=== PATIENT | female | born 1935 | race Caucasian/White ===

== ENCOUNTER 2020-07-28 08:00 | Outpatient (CLI) | payer MEDICARE, OTHER | END 2020-07-28 23:59 | disposition home or self-care (01) | LOC: LAB.R 08:00 | PROVIDERS: ATTEND Physician Assistant Medical | DX: R30.0 Dysuria (principal) | CPT/HCPCS: 87086; 87181 ==

== ENCOUNTER 2020-10-01 09:15 | Outpatient (CLI) | payer MEDICARE, OTHER ==
[2020-10-01 15:13] LABS: BASOPHILS % (AUTO) 0.8 %; EOSINOPHILS # (AUTO) 0.2 10^3/uL (0.0-0.7); EOSINOPHILS % (AUTO) 4.8 %; HGB - HEMOGLOBIN 13.2 g/dL (12.0-16.0); LYMPHOCYTES # (AUTO) 1.1 10^3/uL (1.5-3.5); LYMPHOCYTES % (AUTO) 22.2 %; MEAN CORPUSCULAR HEMOGLOBIN 29.9 pg (27.0-31.0); MEAN CORPUSCULAR HGB CONC 31.4 g/dL (32.0-36.0); MEAN PLATELET VOLUME 10.5 fL (7.9-10.8); MONOCYTES # (AUTO) 0.5 10^3/uL (0.0-1.0); MONOCYTES % (AUTO) 11.1 %; NEUTROPHILS # (AUTO) 2.9 10^3/uL (1.5-6.6); NEUTROPHILS % (AUTO) 60.5 %; PLT - PLATELET COUNT 199 10^3/uL (130-450); RED BLOOD COUNT 4.42 10^6/uL (4.20-5.40); RED CELL DISTRIBUTION WIDTH 13.2 % (12.0-15.0); WHITE BLOOD COUNT 4.8 x10^3/uL (4.8-10.8)
[2020-10-01 15:25] LABS: ALBUMIN 4.5 g/dL (3.2-5.5); ALBUMIN/GLOBULIN RATIO 1.5 (1.0-2.2); ALKALINE PHOSPHATASE 45 IU/L (42-121); ALT ALANINE AMINOTRANSFERASE 16 IU/L (10-60); AST ASPARTATE AMINOTRANSFERASE 16 IU/L (10-42); BILIRUBIN,TOTAL 1.4 mg/dL (0.2-1.0); BUN - BLOOD UREA NITROGEN 22 mg/dL (6-20); CALCIUM 9.7 mg/dL (8.5-10.3); CARBON DIOXIDE - CO2 29 mmol/L (21-32); CHLORIDE 106 mmol/L (101-111); CHOL/HDL RATIO 2.2 (<4.4); CHOLESTEROL 170 mg/dL; CREATININE 0.6 mg/dL (0.4-1.0); GFR - MDRD 95 (>89); GLUCOSE 84 mg/dL (70-100); HDL CHOLESTEROL 76 mg/dL; LDL CHOLESTEROL,CALCULATED 75 mg/dL; POTASSIUM 4.3 mmol/L (3.5-5.0); SODIUM 143 mmol/L (135-145); TOTAL PROTEIN 7.5 g/dL (6.7-8.2); TRIGLYCERIDES 95 mg/dL; VLDL CHOLESTEROL 19 mg/dL
== END 2020-10-01 09:16 | disposition home or self-care (01) ==
LOC: LAB.S 09:15
PROVIDERS: ATTEND Internal Medicine
DX: E78.5 Hyperlipidemia, unspecified (principal); R03.0 Elevated blood-pressure reading, without diagnosis of hypertension
CPT/HCPCS: 36415; 80053; 80061; 83721; 85025

== ENCOUNTER 2020-10-23 16:57 | Outpatient (CLI) | payer MEDICARE, OTHER ==
--- NOTE | 2020-10-24 09:20 | XRAY Report ---
PROCEDURE: Foot 3 View LT INDICATIONS: CALCANEAL SPUR, LEFT FOOT TECHNIQUE: 3 views of the foot were acquired. COMPARISON: None. FINDINGS: Bones: No acute fractures or dislocations. No suspicious bony lesions. Mild hallux valgus. Mild to moderate degenerative changes are seen in the first metatarsophalangeal joint. Scattered degenerativ e changes are seen in the interphalangeal joints of toes. A small posterior calcaneal enthesophyte is seen. Soft tissues: No suspicious soft tissue calcification. IMPRESSION: 1. No acute osseous abnormality. 2. Small posterior calcaneal enthesophyte. 3. 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 Reviewed by: Papo Cohn MD on 10/24/2020 9:18 AM PDT Approved by: Papo Cohn MD on 10/24/2020 9:18 AM PDT Station ID: [id number]
== END 2020-10-23 23:59 | disposition home or self-care (01) ==
LOC: DI.S 16:57
PROVIDERS: ATTEND Emergency Medicine
DX: M77.32 Calcaneal spur, left foot (principal); M20.12 Hallux valgus (acquired), left foot; M19.072 Primary osteoarthritis, left ankle and foot

== ENCOUNTER 2020-11-08 10:00 | Outpatient (CLI) | payer MEDICARE, OTHER ==
[2020-11-08 15:04] LABS: BILIRUBIN,URINE NEGATIVE (NEGATIVE); GLUCOSE, URINE (UA) NEGATIVE (NEGATIVE); KETONES,URINE (UA) NEGATIVE (NEGATIVE); LEUKOCYTE ESTERASE, URINE MODERATE (NEGATIVE); NITRITE,URINE POSITIVE (NEGATIVE); OCCULT BLOOD,URINE TRACE-LYSE (NEGATIVE); PROTEIN,URINE NEGATIVE (NEGATIVE); UROBILINOGEN,URINE 0.2 (NORMAL) E.U./dL (NORMAL)
[2020-11-08 15:07] LABS: CLARITY,URINE SL. CLOUDY (CLEAR)
[2020-11-08 15:10] LABS: BACTERIA,URINE Many /HPF (None Seen); RBC,URINE 0-5 /HPF (0-5); SQUAMOUS EPITHELIAL CELL,UR FEW Squamous (<= Few); WBC,URINE >25 /HPF (0-5)
== END 2020-11-08 23:59 | disposition home or self-care (01) ==
LOC: LAB.S 10:00
PROVIDERS: ATTEND Emergency Medicine
DX: R30.0 Dysuria (principal)
CPT/HCPCS: 81001; 87086; 87181

== ENCOUNTER 2020-12-30 11:49 | Outpatient (CLI) | payer MEDICARE, OTHER ==
--- NOTE | 2020-12-30 17:31 | XRAY Report ---
PROCEDURE: Lumbar Spine 2 View INDICATIONS: BACK PAIN TECHNIQUE: 3 views of the lumbar spine were acquired. COMPARISON: None. FINDINGS: Bones: 5 [id number]-oyh-yjuyogf vertebrae are present. No vertebral body compression fractures. No suspic ious bony lesions. Mild levoconvex scoliotic curvature is seen. There is moderate disc space narrowing seen at L2-L3 an d L3-L4. Mild disc space narrowing is seen at L4-L5 and at L5-S1. Facet arthropathy is seen, which i s most prominent inferiorly. Degenerative changes are also seen of the sacroiliac joints, with sclerosis. Soft tissues: Overlying bowel gas pattern is normal. No suspicious soft tissue calcifications. Ath erosclerotic calcification is seen. IMPRESSION: Levoconvex scoliotic curvature and multiple levels of lumbar spine degenerative change a re seen by plain film. Reviewed by: Ryan Almanzar MD on 12/30/2020 4:30 PM MINO Approved by: Ryan Almanzar MD on 12/30/2020 4:30 PM MINO Station ID: [id number]
== END 2020-12-30 11:50 | disposition home or self-care (01) ==
LOC: DI.S 11:49
PROVIDERS: ATTEND Internal Medicine
DX: M47.816 Spondylosis without myelopathy or radiculopathy, lumbar region (principal); M47.817 Spondylosis without myelopathy or radiculopathy, lumbosacral region; M41.9 Scoliosis, unspecified

== ENCOUNTER 2021-01-19 13:10 | Outpatient (CLI) | payer MEDICARE, OTHER ==
[2021-01-19 20:45] LABS: BILIRUBIN,URINE NEGATIVE (NEGATIVE); GLUCOSE, URINE (UA) NEGATIVE (NEGATIVE); KETONES,URINE (UA) NEGATIVE (NEGATIVE); LEUKOCYTE ESTERASE, URINE SMALL (NEGATIVE); NITRITE,URINE POSITIVE (NEGATIVE); OCCULT BLOOD,URINE TRACE-INTA (NEGATIVE); PH,URINE 6.5 PH (5.0-7.5); PROTEIN,URINE NEGATIVE (NEGATIVE); UROBILINOGEN,URINE 0.2 (NORMAL) E.U./dL (NORMAL)
[2021-01-19 20:48] LABS: CLARITY,URINE CLOUDY (CLEAR)
[2021-01-19 20:56] LABS: BACTERIA,URINE Many /HPF (None Seen); RBC,URINE 0-5 /HPF (0-5); SQUAMOUS EPITHELIAL CELL,UR RARE Squamous (<= Few); WBC,URINE >25 /HPF (0-5)
== END 2021-01-19 23:59 | disposition home or self-care (01) ==
LOC: LAB.S 13:10
PROVIDERS: ATTEND Emergency Medicine
DX: N39.0 Urinary tract infection, site not specified (principal)
CPT/HCPCS: 81001; 87086; 87181

== ENCOUNTER 2021-02-13 08:00 | Outpatient (CLI) | payer MEDICARE, OTHER ==
[2021-02-13 20:45] LABS: BILIRUBIN,URINE NEGATIVE (NEGATIVE); GLUCOSE, URINE (UA) NEGATIVE (NEGATIVE); KETONES,URINE (UA) NEGATIVE (NEGATIVE); LEUKOCYTE ESTERASE, URINE MODERATE (NEGATIVE); NITRITE,URINE POSITIVE (NEGATIVE); OCCULT BLOOD,URINE NEGATIVE (NEGATIVE); PROTEIN,URINE TRACE mg/dL (NEGATIVE); UROBILINOGEN,URINE 1 (NORMAL) E.U./dL (NORMAL)
[2021-02-13 21:03] LABS: CLARITY,URINE CLOUDY (CLEAR); WBC,URINE >25 /HPF (0-5)
[2021-02-13 21:04] LABS: BACTERIA,URINE Many /HPF (None Seen); RBC,URINE 0-5 /HPF (0-5); SQUAMOUS EPITHELIAL CELL,UR NONE SEEN (<= Few)
== END 2021-02-13 23:59 | disposition home or self-care (01) ==
LOC: LAB.S 08:00
PROVIDERS: ATTEND Physician Assistant Medical
DX: R30.0 Dysuria (principal)
CPT/HCPCS: 81001; 87086

== ENCOUNTER 2021-04-06 12:49 | Outpatient (CLI) | payer MEDICARE, OTHER ==
[2021-04-06 20:36] LABS: BASOPHILS # (AUTO) 0.1 10^3/uL (0.0-0.1); EOSINOPHILS # (AUTO) 0.3 10^3/uL (0.0-0.7); EOSINOPHILS % (AUTO) 3.8 %; HCT - HEMATOCRIT 42.8 % (37.0-47.0); HGB - HEMOGLOBIN 13.3 g/dL (12.0-16.0); LYMPHOCYTES # (AUTO) 1.4 10^3/uL (1.5-3.5); LYMPHOCYTES % (AUTO) 19.8 %; MEAN CORPUSCULAR HEMOGLOBIN 29.2 pg (27.0-31.0); MEAN CORPUSCULAR HGB CONC 31.1 g/dL (32.0-36.0); MEAN CORPUSCULAR VOLUME 94.1 fL (81.0-99.0); MEAN PLATELET VOLUME 10.3 fL (7.9-10.8); MONOCYTES # (AUTO) 0.7 10^3/uL (0.0-1.0); MONOCYTES % (AUTO) 10.1 %; NEUTROPHILS # (AUTO) 4.6 10^3/uL (1.5-6.6); NEUTROPHILS % (AUTO) 64.9 %; PLT - PLATELET COUNT 229 10^3/uL (130-450); RED BLOOD COUNT 4.55 10^6/uL (4.20-5.40); RED CELL DISTRIBUTION WIDTH 13.1 % (12.0-15.0); WHITE BLOOD COUNT 7.1 x10^3/uL (4.8-10.8)
[2021-04-06 21:49] LABS: ALBUMIN 4.5 g/dL (3.2-5.5); ALBUMIN/GLOBULIN RATIO 1.4 (1.0-2.2); ALKALINE PHOSPHATASE 56 IU/L (42-121); ALT ALANINE AMINOTRANSFERASE 21 IU/L (10-60); AST ASPARTATE AMINOTRANSFERASE 22 IU/L (10-42); BILIRUBIN,TOTAL 1.1 mg/dL (0.2-1.0); BUN - BLOOD UREA NITROGEN 18 mg/dL (6-20); CHOL/HDL RATIO 2.4 (<4.4); CHOLESTEROL 169 mg/dL; CREATININE 0.6 mg/dL (0.4-1.0); GFR - MDRD 95 (>89); HDL CHOLESTEROL 71 mg/dL; LDL CHOLESTEROL,CALCULATED 64 mg/dL; LDL/HDL RATIO 0.9 (<4.4); TOTAL PROTEIN 7.7 g/dL (6.7-8.2); TRIGLYCERIDES 170 mg/dL; VLDL CHOLESTEROL 34 mg/dL
[2021-04-06 21:51] LABS: CALCIUM 10.2 mg/dL (8.5-10.3); CARBON DIOXIDE - CO2 26 mmol/L (21-32); CHLORIDE 105 mmol/L (101-111); GLUCOSE 86 mg/dL (70-100); POTASSIUM 4.3 mmol/L (3.5-5.0); SODIUM 137 mmol/L (135-145)
== END 2021-04-06 12:50 | disposition home or self-care (01) ==
LOC: LAB.S 12:49
PROVIDERS: ATTEND Internal Medicine
DX: R03.0 Elevated blood-pressure reading, without diagnosis of hypertension (principal); E78.5 Hyperlipidemia, unspecified
CPT/HCPCS: 36415; 80053; 80061; 83721; 85025

== ENCOUNTER 2021-08-20 07:57 | Outpatient (CLI) | payer MEDICARE | END 2021-08-20 07:58 | disposition EMS.NT | LOC: EMS 07:57 | DX: M25.512 Pain in left shoulder (principal) ==

== ENCOUNTER 2021-10-12 08:00 | Outpatient (CLI) | payer MEDICARE ==
--- NOTE | 2021-10-13 12:57 | XRAY Report ---
PROCEDURE: Ribs w/PA Chest RT INDICATIONS: RIGHT SIDED RIB PAIN TECHNIQUE: 2 views of the right ribs were acquired, along with a single view chest. COMPARISON: Chest radiograph 08/03/2014. FINDINGS: Surgical changes and devices: Radiopaque markers overlie the areas of clinical concern. Bones and chest wall: No acute displaced rib fracture visualized. No suspicious bony lesions. Over lying soft tissues appear unremarkable. Lungs and pleura: No pleural effusions or pneumothorax. No suspicious focal airspace opacity. Mediastinum: Mediastinal contours appear normal. Heart size is normal. IMPRESSION: 1. No acute displaced rib fracture visualized. If clinically indicated, CT of the chest could be obta ined for further evaluation. 2. No pneumothorax. Reviewed by: Papo Rodriges MD on 10/13/2021 12:55 PM PDT Approved by: Papo Rodriges MD on 10/13/2021 12:55 PM PDT Station ID: [id number]
--- NOTE | 2021-10-13 14:48 | XRAY Report ---
PROCEDURE: Pelvis 3 View INDICATIONS: ACUTE PELVIC PAIN TECHNIQUE: Inlet, outlet, AP and frog leg views of the pelvis were obtained. COMPARISON: None. FINDINGS: There is mild right and moderate left hip joint space narrowing. There are small bilateral collar ost eophytes. No acute fracture or dislocation. Some degenerative changes noted at the symphysis pubis. N o ankylosis of the sacroiliac joints. IMPRESSION: Mild bilateral hip osteoarthritis, slightly more severe on the left than on the right. Reviewed by: Robyn العلي MD on 10/13/2021 2:47 PM PDT Approved by: Robyn العلي MD on 10/13/2021 2:47 PM PDT Station ID: [id number]
== END 2021-10-12 23:59 | disposition home or self-care (01) ==
LOC: DI.S 08:00
PROVIDERS: ATTEND Physician Assistant
DX: R07.81 Pleurodynia (principal); M16.0 Bilateral primary osteoarthritis of hip

== ENCOUNTER 2021-10-26 14:03 | Outpatient (CLI) | payer MEDICARE ==
--- NOTE | 2021-10-26 16:52 | XRAY Report ---
PROCEDURE: Thoracic Spine 3 View INDICATIONS: THORACIC BACK PAIN TECHNIQUE: 3 views of the thoracic spine were acquired. COMPARISON: None. FINDINGS: Bones: No fractures or dislocations. No suspicious bony lesions. 12 pairs of ribs are noted, and a ppear intact where visualized. Multilevel degenerative disc space narrowing. Soft tissues: No paravertebral stripe thickening. IMPRESSION: Degenerative disc space narrowing. No visualized acute fracture or dislocation. However, occult injur y cannot be excluded. Recommend short interval imaging follow-up in 7-10 days as clinically indicated for additional evaluation. Reviewed by: Sandra Perry MD on 10/26/2021 4:51 PM PDT Approved by: Sandra Perry MD on 10/26/2021 4:51 PM PDT Station ID: [id number]
--- NOTE | 2021-10-26 16:53 | XRAY Report ---
PROCEDURE: Lumbar Spine 2 View INDICATIONS: LOW BACK PAIN TECHNIQUE: 3 views of the lumbar spine were acquired. COMPARISON: None. FINDINGS: Bones: 5 [id number]-[id number] vertebrae are present. There is mild leftward scoliotic curvature. Multile robb degenerative disc space narrowing is present most severe from L3-4 through L5-S1. Severe foramina l narrowing is present at L2-3 and L5-S1. No vertebral body compression fractures. No suspicious bon y lesions. Soft tissues: Overlying bowel gas pattern is normal. No suspicious soft tissue calcifications. IMPRESSION: Multilevel degenerative changes as above. Reviewed by: Sandra Perry MD on 10/26/2021 4:52 PM PDT Approved by: Sandra Perry MD on 10/26/2021 4:52 PM PDT Station ID: [id number]
== END 2021-10-26 14:04 | disposition home or self-care (01) ==
LOC: DI.S 14:03
PROVIDERS: ATTEND Nurse Practitioner Family
DX: M51.34 Other intervertebral disc degeneration, thoracic region (principal); M47.816 Spondylosis without myelopathy or radiculopathy, lumbar region; M47.817 Spondylosis without myelopathy or radiculopathy, lumbosacral region

== ENCOUNTER 2022-09-23 13:39 | Outpatient (CLI) | payer MEDICARE ==
--- NOTE | 2022-09-23 16:27 | DEXA Report ---
PROCEDURE: Dexa Spine and/or Hip INDICATIONS: OSTEOPOROSIS TECHNIQUE: Dual energy x-ray absorptiometry (DXA) was performed on a [employer] app System. Regions measur ed are the AP Spine, femoral neck, and if needed forearm. COMPARISON: None FINDINGS: Lumbar Spine: Bone Mineral Density 0.710 g/cm/cm,T score -3.9. Osteoporosis Left Femoral Neck: Bone Mineral Density 0.640 g/cm/cm, T score -2.9. Osteoporosis Left Hip: Bone Mineral Density 0.711 g/cm/cm,T score -2.4. Osteopenia (T score greater or equal to -1.0: NORMAL) (T score from -1.1 to -2.4: OSTEOPENIA) (T score less than or equal to -2.5 to: OSTEOPOROSIS) Impression: By WHO criteria, this patient has osteoporosis. Patients with diagnosis of osteoporosis or osteopenia should have regular bone mineral density assess ment. For those eligible for Medicare, routine testing is allowed once every 2 years. Testing frequ ency can be increased for patients who have rapidly progressing disease or for those who are receivin g medical therapy to restore bone mass. Reviewed by: Antonio Vasquez MD on 09/23/2022 3:26 PM MINO Approved by: Antonio Vasquez MD on 09/23/2022 3:26 PM MINO Station ID: [id number]
== END 2022-09-23 13:40 | disposition home or self-care (01) ==
LOC: DI 13:39
PROVIDERS: ATTEND Nurse Practitioner Family
DX: M81.0 Age-related osteoporosis without current pathological fracture (principal)

== ENCOUNTER 2022-12-13 20:06 | Outpatient (CLI) | payer MEDICARE | END 2022-12-13 20:07 | disposition critical access hospital (66) | LOC: EMS 20:06 | DX: M25.552 Pain in left hip (principal); W01.0XXA Fall on same level from slipping, tripping and stumbling without subsequent striking against object, initial encounter; Y93.01 Activity, walking, marching and hiking; Y92.009 Unspecified place in unspecified non-institutional (private) residence as the place of occurrence of the external cause | CPT/HCPCS: A0425; A0429 ==

== ENCOUNTER 2023-03-08 08:00 | Outpatient (CLI) | payer MEDICARE ==
--- NOTE | 2023-03-08 16:52 | XRAY Report ---
PROCEDURE: Hip 2 View LT INDICATIONS: LEFT HIP ORIF TECHNIQUE: AP and lateral views of the hip were acquired. COMPARISON: 12/03/2022 FINDINGS: Bones: Expected appearance post ORIF of subtrochanteric fracture of the left hip. No evidence of maxx dware failure or loosening. Near overall anatomic alignment. Soft tissues: No suspicious soft tissue calcifications or masses. IMPRESSION: Expected appearance of left hip ORIF. Reviewed by: Jayesh Eddy MD on 03/08/2023 4:50 PM PST Approved by: Jayesh Eddy MD on 03/08/2023 4:50 PM PST Station ID: [id number]
== END 2023-03-08 23:59 | disposition home or self-care (01) ==
LOC: DI.WOS 08:00
PROVIDERS: ATTEND Orthopaedic Surgery
DX: S72.142D Displaced intertrochanteric fracture of left femur, subsequent encounter for closed fracture with routine healing (principal)

== ENCOUNTER 2023-03-17 10:57 | Outpatient (CLI) | payer MEDICARE | END 2023-03-17 10:58 | disposition short-term general hospital (02) | LOC: EMS 10:57 | DX: M25.551 Pain in right hip (principal); R53.1 Weakness; M25.511 Pain in right shoulder; W01.0XXA Fall on same level from slipping, tripping and stumbling without subsequent striking against object, initial encounter; Y92.480 Sidewalk as the place of occurrence of the external cause | CPT/HCPCS: A0425; A0427 ==

== ENCOUNTER 2023-06-14 11:19 | Outpatient (CLI) | payer MEDICARE ==
--- NOTE | 2023-06-14 13:24 | XRAY Report ---
PROCEDURE: Lumbar Spine 4V INDICATIONS: LOWER BACK PAIN TECHNIQUE: 5 views of the lumbar spine were acquired. COMPARISON: None. FINDINGS: Bones: Diffuse osseous demineralization limits sensitivity for subtle nondisplaced fracture. 5 non-ri b-bearing vertebrae are present. Levoconvex curvature centered at L3-L4. Grade 1 anterolisthesis of L 4 on L5. Phoz-nr-xywtlaft multilevel degenerative changes with osteophytosis, disc height loss and fa cet arthropathy, notably at L5-S1. Mild osseous neural foraminal narrowing at L4-5 and L5-S1. No vert ebral body compression fractures. No suspicious bony lesions. Oblique views demonstrate no definite pars defect. Additionally visualized bilateral femoral hardware. Soft tissues: Overlying bowel gas pattern is normal. No suspicious soft tissue calcifications. Herman cification of the abdominal aorta. IMPRESSION: Diffuse osseous demineralization limits sensitivity for subtle nondisplaced fracture. 1.Within these limitations, no definite acute fracture or traumatic subluxation. 2.Grade 1 anterolisthesis of L4 on L5 with no definite pars defect. 3.[id number]-xr-[id number] multilevel degenerative changes of the spine with levoconvex curvature. Reviewed by: Travis Cochran MD on 06/14/2023 1:23 PM PDT Approved by: Travis Cochran MD on 06/14/2023 1:23 PM PDT Station ID: [id number]
== END 2023-06-14 11:20 | disposition home or self-care (01) ==
LOC: DI.S 11:19
PROVIDERS: ATTEND Nurse Practitioner Family
DX: M47.816 Spondylosis without myelopathy or radiculopathy, lumbar region (principal); M47.817 Spondylosis without myelopathy or radiculopathy, lumbosacral region; M41.9 Scoliosis, unspecified; M85.80 Other specified disorders of bone density and structure, unspecified site

== ENCOUNTER 2023-11-05 11:13 | Outpatient (CLI) | payer MEDICARE ==
--- NOTE | 2023-11-05 23:10 | XRAY Report ---
PROCEDURE: Hip w/Pelvis 2-3V LT INDICATIONS: OSTEOARTHRITIS TECHNIQUE: AP and lateral views of the hip were acquired. COMPARISON: 03/08/2023. FINDINGS: Bones: Status post right total hip arthroplasty. Stable postsurgical changes of prior open reduction internal fixation of the left temporal neck. No evidence for hardware complication either side. No a cute fracture seen. Degenerative changes of the bilateral hip. Lower lumbar spondylosis. Diffuse oste openia. Soft tissues: No suspicious soft tissue calcifications or masses. IMPRESSION: Left hip without acute fracture or dislocation. Stable postsurgical changes of surgical fixation of t he proximal left femur without evidence for hardware complication. Degenerative changes of the left h ip joint. Status post right total hip arthroplasty. Reviewed by: Keo Altman MD on 11/05/2023 11:08 PM PDT Approved by: Keo Altman MD on 11/05/2023 11:08 PM PDT Station ID: [id number]
== END 2023-11-05 11:14 | disposition home or self-care (01) ==
LOC: DI 11:13
PROVIDERS: ATTEND Physician Assistant
DX: M16.12 Unilateral primary osteoarthritis, left hip (principal); Z96.641 Presence of right artificial hip joint; Z96.89 Presence of other specified functional implants